=== PATIENT | male | born 1975 | race Caucasian/White ===

== ENCOUNTER → 2017-11-06 | Outpatient (REF) | payer BC | LOC: M LAB REF 14:08 | DX: D17.21 Benign lipomatous neoplasm of skin and subcutaneous tissue of right arm (principal) | CPT/HCPCS: 88304 ==

== ENCOUNTER → 2019-07-16 | Outpatient (REF) | payer BC ==
[2019-07-16 18:05] LABS: INFLUENZA A AMPLIFICATION NEGATIVE (NEGATIVE); INFLUENZA B AMPLIFICATION NEGATIVE (NEGATIVE)
== END ==
LOC: M LAB REF 15:45
PROVIDERS: ATTEND Registered Nurse
DX: R59.0 Localized enlarged lymph nodes (principal)